=== PATIENT | female | born 1945 | race Caucasian/White ===

== ENCOUNTER 2024-12-30 06:45 | Day surgery (SDC) | payer MEDICARE, MEDICAID ==
[2024-12-24 12:21] LABS: BASOPHILS % (AUTO) 0.8 % (0-1); EOSINOPHILS # (AUTO) 0.1 X10'3 (0-0.9); EOSINOPHILS % (AUTO) 1.7 % (0-6); LYMPHOCYTES # (AUTO) 1.3 X10'3 (1.1-4.8); LYMPHOCYTES % (AUTO) 28.5 % (21-51); MEAN CORPUSCULAR HEMOGLOBIN 33.6 PG (27.0-31.0); MEAN CORPUSCULAR HGB CONC 34.8 g/dL (33.0-36.5); MEAN CORPUSCULAR VOLUME 96.5 FL (78-98); MEAN PLATELET VOLUME 7.2 FL (7.4-10.4); MONOCYTES # (AUTO) 0.4 X10'3 (0-0.9); MONOCYTES % (AUTO) 9.3 % (2-12); NEUTROPHILS # (AUTO) 2.8 X10'3 (1.8-7.7); NEUTROPHILS % (AUTO) 59.7 % (42-75); PRE OP HEMOGLOBIN 12.5 g/dL (12.0-16.0); PRE OP PLATELET COUNT 350 X10'3 (140-440); PRE OP WHITE BLOOD COUNT 4.7 10'3 (4.8-10.8); RED BLOOD COUNT 3.73 X10'6 (4.20-5.60); RED CELL DISTRIBUTION WIDTH 13.4 % (11.5-14.5)
[2024-12-24 12:40] LABS: ALBUMIN 4.2 G/DL (3.4-5.0); ALBUMIN/GLOBULIN RATIO 1.2 (1.1-1.5); ALKALINE PHOSPHATASE 82 IU/L (46-116); BLOOD UREA NITROGEN 27 MG/DL (7-18); BUN/CREATININE RATIO 36.5 (10.0-20.0); CALCIUM 9.2 MG/DL (8.5-10.1); CHLORIDE 101 MMOL/L (99-107); CREATININE 0.74 MG/DL (0.40-0.90); PRE OP ALT 26 U/L (30-65); PRE OP ANION GAP 6 (8-16); PRE OP AST 37 U/L (10-37); PRE OP BILIRUB, TOTAL 0.3 MG/DL (0.0-1.0); PRE OP GLUCOSE 92 MG/DL (70-104); PRE OP SODIUM 138 MMOL/L (135-145); TOTAL CARBON DIOXIDE 30.9 MMOL/L (24-32); TOTAL PROTEIN 7.7 G/DL (6.4-8.2); eGFR 76 ML/MIN
[2024-12-30] VITALS (13 sets, daily range): BP systolic 102–131; BP diastolic 57–68; PULSE 56–63; RESP 12–18; TEMP 98.6; O2SAT 92–100
[~2024-12-30] VITALS: Ht 165.1 cm; Wt 68.2 kg
[~2024-12-30 06:45] MED LIST: AMIO100T4 PO; APIX5TAB3 PO; PRAM0.258 PO; SERT-434 PO
[2024-12-30] MEDS ORDERED: BUPIVACAINE liposomal/PF 13.3 MG/ML 10mL vial IM ONE (06:47)
[2024-12-30] MEDS ORDERED: BUPIVAcaine 2.5mg/ml inj 50ml vial (contains preservative) ONE (06:47)
[2024-12-30] MEDS ORDERED: LIDOcaine 1% 30ml preserv. free vial ONE (07:02)
[2024-12-30] MEDS: ringers solution, lacted 1,000 ML IV SCH (07:38)
[2024-12-30] MEDS: famotidine 20mg tablet PO ONE (07:38)
[2024-12-30] MEDS ORDERED: cefazolin 2gm/D5W 100mL 100 ML IV ONE (07:55)
[2024-12-30] MEDS ORDERED: ondansetron/PF 4mg/2ml inj IV PRN (08:20)
[2024-12-30] MEDS ORDERED: morphine 2 MG/ML inj. syringe IV PRN (08:20)
[2024-12-30] MEDS ORDERED: proCHLORperazine 10 MG/2 ml inj IV PRN (08:20)
[2024-12-30] MEDS ORDERED: ringers solution, lacted 1,000 ML IV SCH (08:20)
[2024-12-30] MEDS ORDERED: meperidine/PF 25mg/ml syringe IV PRN ×2 (08:20)
[2024-12-30] MEDS: ceFAZolin 2gm in dextrose, iso 50 ML IV ONE (08:39)
[2024-12-30] MEDS ORDERED: sevoflurane 250ml liquid IH ONE (08:53)
[2024-12-30] MEDS ORDERED: midazolam 1 mg/ML 2ml injection ONE (08:57)
[2024-12-30] MEDS ORDERED: rocuronium 10mg/ml inj IV ONE (08:57)
[2024-12-30] MEDS ORDERED: fentaNYL/PF 50MCG/1 ML 2ML syringe ONE (08:57)
[2024-12-30] MEDS ORDERED: propofol inj 20 ML IV ONE (08:57)
[2024-12-30] MEDS ORDERED: dexamethasone sod phosphate 4mg/ml inj. ONE (10:08)
[2024-12-30] MEDS ORDERED: neostigmine methylsulfate 1 MG/ML 10ml vial ONE (10:11)
[2024-12-30] MEDS ORDERED: ondansetron/PF 4mg/2ml inj ONE (10:11)
[2024-12-30] MEDS ORDERED: glycopyrrolate 0.2mg/ml inj ONE (10:11)
[2024-12-30] MEDS: meperidine/PF 25mg/ml syringe IV PRN (11:15)
[2024-12-30] MEDS: HYDROcodone/acetaminophen 5mg/325mg tablet PO PRN (11:15)
[2024-12-30] MEDS: morphine 4 MG/ML inj SYRINge IV PRN (11:30)
[2024-12-30] MEDS: acetaminophen 1,000mg/100ml IV 100 ML IV SCH (12:33)
[2024-12-30] MEDS: ketorolac trometh 15mg/ml vial 15 MG/ML ML IV ONE (12:34)
== END 2024-12-30 12:50 | disposition home or self-care (01) ==
LOC: PAS 06:45
PROVIDERS: ATTEND Surgery
DX: K40.21 Bilateral inguinal hernia, without obstruction or gangrene, recurrent (principal); K43.9 Ventral hernia without obstruction or gangrene; Z79.899 Other long term (current) drug therapy; I48.91 Unspecified atrial fibrillation; Z98.890 Other specified postprocedural states; F32.A Depression, unspecified; F41.9 Anxiety disorder, unspecified; G47.30 Sleep apnea, unspecified; Z90.11 Acquired absence of right breast and nipple; Z85.3 Personal history of malignant neoplasm of breast
CPT/HCPCS: 36415; 49591; 49651; 80053; 82948; 85025; A4215; A4618; C1781; J0131; J0690; J1100; J1885; J2003; J2175; J2250; J2270; J2405; J2704; J2710; J3010; J3490; J7030; J7120; Z7506; Z7508; Z7512; Z7610; J0666